=== PATIENT | male | born 1950 | race Caucasian/White ===

== ENCOUNTER 2020-12-29 23:12 | Emergency (ER) | payer OTHER ==
[~2020-12-29] VITALS: Ht 182.9 cm; Wt 86.2 kg
[2020-12-30 00:07] LABS: BASOPHILS % (AUTO) 0.5 % (0.0-2.0); EOSINOPHILS % (AUTO) 5.8 % (0.0-6.0); HEMATOCRIT 32 % (39-51); HEMOGLOBIN 10.3 g/dL (13.5-17.5); LYMPHOCYTES # (AUTO) 1.5 K/uL (0.8-4.8); LYMPHOCYTES % (AUTO) 19.6 % (20.0-44.0); MEAN CORPUSCULAR HGB CONC 33 g/dl (31.0-36.0); MEAN CORPUSCULAR VOLUME 84 fL (80-96); MONOCYTES # (AUTO) 0.7 K/uL (0.1-1.30); MONOCYTES % (AUTO) 8.9 % (2.0-12.0); NEUTROPHILS # (AUTO) 4.9 K/uL (1.8-8.9); NEUTROPHILS % (AUTO) 65.2 % (43.0-81.0); PLATELET COUNT (AUTO) 362 K/uL (150-450); RED BLOOD CELL COUNT(AUTO) 3.74 MIL/uL (4.5-6.0); WHITE BLOOD COUNT (AUTO) 7.5 K/uL (4.3-11.0)
[2020-12-30 00:28] LABS: CALCIUM, SERUM 8.2 mg/dL (8.5-10.1); CARBON DIOXIDE 27 mmol/L (21-32); CHLORIDE 110 mmol/L (98-107); GLUCOSE 130 mg/dL (74-106); SODIUM SERUM 144 mmol/L (136-145); UREA NITROGEN, BLOOD 32 mg/dL (7-18)
[2020-12-30 00:42] LABS: ALANINE AMINOTRANSFERASE 13 U/L (12-78); ALBUMIN 2.3 g/dL (3.4-5.0); ALKALINE PHOSPHATASE 101 U/L (46-116); ASPARTATE AMINOTRANSFERASE 11 U/L (15-37); BILIRUBIN,DIRECT 0.1 mg/dL (0.0-0.2); BILIRUBIN,TOTAL 0.3 mg/dL (0.2-1.0); TOTAL PROTEIN, SERUM 7.1 g/dL (6.4-8.2)
[2020-12-30] MEDS ORDERED: ZIPRASIDONE MESYLATE 20 MG/VIAL VIAL IM ONE ×2 (01:00→01:15)
--- NOTE | 2020-12-30 01:29 | NUR ---
COVID SWAB COLLECTED AND SENT TO LAB
[2020-12-30] MEDS ORDERED: ACETAMINOPHEN 325 MG TABLET PO PRN (02:30)
[2020-12-30] MEDS ORDERED: MAGNESIUM HYDROXIDE 30 ML UDC PO PRN (02:30)
[2020-12-30] MEDS ORDERED: ONDANSETRON HCL/PF 4 MG/2 ML VIAL IVP PRN (02:30)
[2020-12-30] MEDS ORDERED: IV NS 0.9% 1,000 ML IV PRN (02:30)
--- NOTE | 2020-12-30 02:36 | NUR ---
ROSARIO FROM [facility] CALLED FOR VS UPDATE
[2020-12-30] MEDS ORDERED: IV NS 0.9% 1,000 ML BAG IV ONE ×2 (03:00)
--- NOTE | 2020-12-30 05:13 | NUR ---
PT ACCEPTED AT [facility] UNDER THE CARE OF DR. HAWKINS. PT GOING TO ROOM 1000 MS. CALL [phone] FOR REPORT. PAINTER SHIPYARD TIME FOR TRANSPORT [id number]
--- NOTE | 2020-12-30 07:00 | NUR ---
GAVE REPORT TO SHERINE GOMEZ FROM [facility]
--- NOTE | 2020-12-30 08:21 | NUR ---
[facility] [place]
[2020-12-30 09:15] VITALS: BP 103/74
--- NOTE | 2020-12-30 09:16 | NUR ---
patient picked up by private ambulance going to [facility] for rehab medicine in no distress.
== END 2020-12-30 09:16 | disposition short-term general hospital (02) ==
LOC: ER 23:18
DX: I95.9 Hypotension, unspecified (principal); N17.9 Acute kidney failure, unspecified; R45.1 Restlessness and agitation; Z20.822 Contact with and (suspected) exposure to COVID-19; Z89.412 Acquired absence of left great toe; R94.31 Abnormal electrocardiogram [ECG] [EKG]
CPT/HCPCS: 36415; 71045; 80048; 80076; 83605; 83880; 84145; 84484; 85025; 85730; 87040 ×2; 87426; 93005; 96372; 99291; C9803; J3486; U0003

== ENCOUNTER 2021-01-31 10:40 | Inpatient (IN) | payer OTHER ==
[2021-01-31] VITALS (20 sets, daily range): BP systolic 64–122; BP diastolic 22–93
[~2021-01-31] VITALS: Ht 182.9 cm; Wt 79.4 kg
--- NOTE | 2021-01-31 10:47 | NUR ---
DR PUENTE AT BEDSIDE FOR EVAL
[2021-01-31] MEDS ORDERED: IV NS 0.9% 500 ML BAG IV ONE ×2 (11:00→14:00)
[2021-01-31 11:08] LABS: BASOPHILS % (AUTO) 0.6 % (0.0-2.0); EOSINOPHILS % (AUTO) 2.5 % (0.0-6.0); HEMATOCRIT 28 % (39-51); HEMOGLOBIN 9.2 g/dL (13.5-17.5); LYMPHOCYTES # (AUTO) 0.9 K/uL (0.8-4.8); LYMPHOCYTES % (AUTO) 15.1 % (20.0-44.0); MEAN CORPUSCULAR HGB CONC 33 g/dl (31.0-36.0); MEAN CORPUSCULAR VOLUME 83 fL (80-96); MONOCYTES # (AUTO) 0.3 K/uL (0.1-1.30); MONOCYTES % (AUTO) 5.7 % (2.0-12.0); NEUTROPHILS # (AUTO) 4.3 K/uL (1.8-8.9); NEUTROPHILS % (AUTO) 76.1 % (43.0-81.0); PLATELET COUNT (AUTO) 163 K/uL (150-450); RED BLOOD CELL COUNT(AUTO) 3.34 MIL/uL (4.5-6.0); WHITE BLOOD COUNT (AUTO) 5.7 K/uL (4.3-11.0)
--- NOTE | 2021-01-31 11:12 | NUR ---
RATE SETTER AT BEDSIDE
--- NOTE | 2021-01-31 11:20 | NUR ---
URINE SAMPLE COLLECTED VIA STRAIGHT CATHETER, SENT TO LAB
[2021-01-31 11:24] LABS: CALCIUM, SERUM 8.1 mg/dL (8.5-10.1); CARBON DIOXIDE 25 mmol/L (21-32); CHLORIDE 109 mmol/L (98-107); CREATININE 2.8 mg/dL (0.6-1.3); GLUCOSE 113 mg/dL (74-106); POTASSIUM 4.6 mmol/L (3.5-5.1); SODIUM SERUM 143 mmol/L (136-145); UREA NITROGEN, BLOOD 71 mg/dL (7-18)
[2021-01-31 11:28] LABS: ALANINE AMINOTRANSFERASE 20 U/L (12-78); ALBUMIN 1.8 g/dL (3.4-5.0); ALKALINE PHOSPHATASE 108 U/L (46-116); ASPARTATE AMINOTRANSFERASE 19 U/L (15-37); BILIRUBIN,DIRECT 0.1 mg/dL (0.0-0.2); BILIRUBIN,TOTAL 0.2 mg/dL (0.2-1.0); TOTAL PROTEIN, SERUM 6.3 g/dL (6.4-8.2)
[2021-01-31 11:49] LABS: BILIRUBIN,URINE Negative (NEGATIVE); COLOR,URINE YELLOW (YELLOW); LEUKOCYTE ESTERASE ,URINE Large (NEGATIVE); NITRITE, URINE Negative (NEGATIVE); PROTEIN,URINE 30 mg/dl (NEGATIVE); UGLUCOSE Negative (NEGATIVE); UROBILINOGEN,URINE 0.2 EU/dL (0.2)
[2021-01-31 11:54] LABS: BACTERIA,URINE 2+ /HPF (None Seen); SQUAMOUS EPITHELIAL CELL,UR Few /HPF (None Seen); WBC,URINE 21-50 /HPF (0-3)
--- NOTE | 2021-01-31 12:31 | NUR ---
COVID RAPID AND PCR TEST WAS COLLECTED. SENT TO THE LAB
[2021-01-31] MEDS ORDERED: CEFTRIAXONE 1GM BAG (ER ONLY) 50 ML IV ONE (12:45)
[2021-01-31] MEDS ORDERED: CEFTRIAXONE 1GM BAG (ER ONLY) 1 GM/50 ML PIGGYBACK IV ONE (13:00)
[2021-01-31] MEDS ORDERED: IV NS 0.9% 1,000 ML BAG IV ONE (13:00)
[2021-01-31] MEDS ORDERED: ACET325T53 PO (13:36)
[2021-01-31] MEDS ORDERED: RIVA10TA PO (13:36)
[2021-01-31] MEDS ORDERED: SENN-175 PO (13:36)
[2021-01-31] MEDS ORDERED: PANT40TA49 PO (13:36)
[2021-01-31] MEDS ORDERED: METO50TA16 PO (13:36)
[2021-01-31] MEDS ORDERED: ASPI-1169 PO (13:36)
[2021-01-31] MEDS ORDERED: PERIACTIN PO (13:36)
[2021-01-31] MEDS ORDERED: MULT-447 PO (13:36)
[2021-01-31] MEDS ORDERED: ZINC220C6 PO (13:36)
[2021-01-31] MEDS ORDERED: ASCO500T20 PO (13:36)
[2021-01-31] MEDS ORDERED: LISI40TA13 PO (13:36)
[2021-01-31] MEDS ORDERED: QUET50TA PO (13:36)
[2021-01-31] MEDS ORDERED: ATOR40TA PO (13:36)
[2021-01-31] MEDS ORDERED: DIVA125C5 PO (13:36)
[2021-01-31] MEDS ORDERED: BISA10SU11 RC (13:36)
[2021-01-31] MEDS ORDERED: NA P133E RC (13:36)
[2021-01-31] MEDS ORDERED: FINA5TAB11 PO (13:36)
--- NOTE | 2021-01-31 13:58 | NUR ---
PAGED DR. ANDRADE
--- NOTE | 2021-01-31 14:10 | NUR ---
MADE AWARE OF BP. ORDERED TO PLACE PICC LINE FOR PRESSORS. MADE ELEUTERIO ESPINOSA AWARE.
--- NOTE | 2021-01-31 14:35 | NUR ---
PICC LINE NURSE AT BEDSIDE
[2021-01-31] MEDS: NOREPINEPHRINE 8 MG in IV NS 0.9% 242 ML IV PRN ×4 (14:40→21:12)
--- NOTE | 2021-01-31 14:59 | NUR ---
MD MONTERO SPEAKING WITH MD ANDRADE
[2021-01-31] MEDS ORDERED: PIPERACILLIN /TAZOBACTAM 3.375 G in IV D5W 50 ML IV ONE (15:00)
--- NOTE | 2021-01-31 15:11 | NUR ---
MARKET NEWS REPORTER AT BEDSIDE
--- NOTE | 2021-01-31 15:46 | NUR ---
REPORT GIVEN TO FRED GOMEZ OF ICU
[2021-01-31] MEDS ORDERED: VANCOMYCIN 1 GM in IV D5W 250ml IV ONE (16:00)
[2021-01-31] MEDS ORDERED: ACETAMINOPHEN 325 MG TABLET PO PRN (16:00)
[2021-01-31] MEDS ORDERED: BISACODYL SUPP (10 MG) 10 MG/SUPP.RECT SUPP.RECT RC PRN (16:00)
[2021-01-31] MEDS ORDERED: NA PHOS,M-B/NA PHOS,DI-BA 1 EA ENEMA RC PRN (16:00)
[2021-01-31] MEDS ORDERED: DEXTROSE 50%-WATER 50 ML DISP.SYRIN IV PRN (16:00)
[2021-01-31] MEDS ORDERED: PIPERACILLIN /TAZOBACTAM 2.25 G in IV D5W 50 ML IV SCH (16:00)
[2021-01-31] MEDS: PIPERACILLIN /TAZOBACTAM 2.25 G in IV D5W 50 ML IV SCH (16:30)
--- NOTE | 2021-01-31 16:30 | NUR ---
RN/ICU-ADMITTED THIS 70 Y/O MALE FROM ER ,ACCOMPANIED BY ER STAFF PER ACLS PROTOCOL.DX:SEPSIS,PNEUMONIA,UTI.ROUTINE ICU ADMISSION CARE INITIATED.PT. IS AWAKE, CALM, ORIENTED TO SELF AND PLACE, SPEECH SLIGHTLY SLURRED AT THIS TIME.NO MOTOR DEFICIT NOTED. ON ROOM AIR, STA.-95%. EKG ST W/ HR-132/MIN. BP-84/71, ON LEVOPHED DRIP AT 0.3 MCG/KG/MIN. WILL TITRATE TO KEEP SBP>90 PER PROTOCOL.
[2021-01-31] MEDS: RIVAROXABAN 10 MG TABLET PO SCH (17:22)
[2021-01-31] MEDS: BLOOD SUGAR DIAGNOSTIC 1 EACH STRIP VI SCH ×2 (17:39→21:29)
[2021-01-31] MEDS: INSULIN REGULAR, HUMAN 100 UNIT/ML 3 ML VIAL SQ PRN (17:42)
--- NOTE | 2021-01-31 17:50 | NUR ---
RN/ICU-PT. EXTREMELY AGITATED, STARTED PULLING ON MEDICAL, SLIDING DOWN, RIGHT LEG ON TOP OF RAIL IN SPITE OF VERBAL REMINDER, RICHAR. SOFT WRIST RESTRAINTS APPLIED PER PROTOCOL. WILL CONTINUE TO MONITOR PER PROTOCOL.
--- NOTE | 2021-01-31 18:05 | NUR ---
RN/ICU-PT. ABLE TO PULL PADS AND REMOVED PULSE OXIMETER PROBE, SHAKING THE BED VIGOROUSLY, RICHAR. MITTENS ADDED TO THE SOFT WRIST RESTRAINTS PER PROTOCOL.
--- NOTE | 2021-01-31 18:50 | NUR ---
RN/ICU- SPOKE TO SISTER DONELL BY PHONE REGARDING PT. STATUS AND POC. VERBALIZED UNDERSTANDING. WILL VISIT PT., ARRIVING NNAMDI. AFTERNOON AT 1700. DONELL'S PHONE NO. [phone].
--- NOTE | 2021-01-31 19:00 | NUR ---
RN/ICU-PT. REMAINS OFF AND ON AGITATED, YELLING , VERY CONFUSED,REMAINS ON LEVOPHED DRIP PER PROTOCOL. WILL CONTINUE TO TITRATE TOLERATED TO KEEP SBP>90. ON DROPLET AND CONTACT ISOLATION , AWAITING PCR RESULT,PRECAUTIONS IN EFFECT.
--- NOTE | 2021-01-31 19:30 | NUR ---
RN NOTE RECEIVED PT CONFUSED AND VERY AGITATED. TRIED TO CALM PATIENT, PT BEING UNCOOPERATIVE. PT ORIENTED TO SELF ONLY. REORIENTED TO TIME PLACE AND SITUATION. PT ON LEVOPHED AT 0.1MCG/KG/MIN., MARLYS PICC PATENT AND INTACT. PT WITH BILATERAL SOFT WRIST RESTRAINTS AND MITTENS, TRYING TO GET OUT FROM BED. PT ON ROOM AIR SATING 96%. ALL SAFETY MEASURES IMPLEMENTED PER PROTOCOL. WILL CONTINUE TO MONITOR.
[2021-01-31] MEDS: ATORVASTATIN 40 MG TABLET PO SCH (21:17)
[2021-01-31] MEDS: DIVALPROEX SODIUM 125 MG CAP.SPRINK PO SCH (21:17)
[2021-01-31] MEDS: *INSULIN REGULAR(HUMULIN R)HUM 100 UNIT/ML VIAL SQ PRN (21:31)
[2021-01-31] MEDS ORDERED: ADENOSINE 6 MG/2 ML VIAL IVP STA (22:48)
--- NOTE | 2021-01-31 22:50 | NUR ---
RN NOTE PT WENT TO SVT. HR 197-220. PT AWAKE. DENIES ANY CHEST PAIN. NOTIFIED DR ANDRADE. WITH NEW ORDERS TO GIVE ADENOSINE 6MG IVP X 1, NS 1L BOLUS AND CHANGED LEVOPHED TO AMY. INPUT ORDERS AND CARRIED OUT. CHARGE NURSE WITH THE PT. MADE AWARE WITH THE NEW ORDERS.
[2021-01-31] MEDS ORDERED: ADENOSINE 6 MG/2 ML VIAL ONE (22:54)
[2021-01-31] MEDS ORDERED: PHENYLEPHRINE 10 MG/ML VIAL ONE (22:58)
[2021-01-31] MEDS ORDERED: IV NS 0.9% 1,000 ML IV ONE (23:00)
[2021-01-31] MEDS: PHENYLEPHRINE 50 MG in IV NS 0.9% 245 ML IV PRN (23:05)
--- NOTE | 2021-01-31 23:45 | NUR ---
RN NOTE PT CONVERTED BACK TO SINUS TACH WITH HR OF 108. EKG RESULTS RELAYED TO DR ANDRADE.
--- NOTE | 2021-01-31 23:50 | NUR ---
RN NOTE PT ON SINUS TACH NOW WITH HR 108, DR ANDRADE ORDERED TO STILL GIVE THE ADENOSINE ORDERED. CHARGE NURSE MADE AWARE. CHARGE NURSE ADMINISTERED IV ADENOSINE. WILL CONTINUE TO MONITOR.
[2021-02-01] VITALS (81 sets, daily range): BP systolic 66–178; BP diastolic 14–103
[2021-02-01] MEDS: PIPERACILLIN /TAZOBACTAM 2.25 G in IV D5W 50 ML IV SCH ×3 (00:16→17:17)
[2021-02-01 04:27] LABS: BASOPHILS % (AUTO) 0.6 % (0.0-2.0); EOSINOPHILS % (AUTO) 0.2 % (0.0-6.0); HEMATOCRIT 27 % (39-51); LYMPHOCYTES # (AUTO) 0.8 K/uL (0.8-4.8); LYMPHOCYTES % (AUTO) 10.4 % (20.0-44.0); MEAN CORPUSCULAR HGB CONC 33 g/dl (31.0-36.0); MEAN CORPUSCULAR VOLUME 84 fL (80-96); MONOCYTES # (AUTO) 0.5 K/uL (0.1-1.30); MONOCYTES % (AUTO) 6.8 % (2.0-12.0); NEUTROPHILS # (AUTO) 6.2 K/uL (1.8-8.9); PLATELET COUNT (AUTO) 176 K/uL (150-450); RED BLOOD CELL COUNT(AUTO) 3.22 MIL/uL (4.5-6.0); WHITE BLOOD COUNT (AUTO) 7.6 K/uL (4.3-11.0)
[2021-02-01 04:55] LABS: ALANINE AMINOTRANSFERASE 17 U/L (12-78); ALBUMIN 1.8 g/dL (3.4-5.0); ALKALINE PHOSPHATASE 112 U/L (46-116); ASPARTATE AMINOTRANSFERASE 18 U/L (15-37); BILIRUBIN,TOTAL 0.3 mg/dL (0.2-1.0); CALCIUM, SERUM 7.3 mg/dL (8.5-10.1); CARBON DIOXIDE 23 mmol/L (21-32); CHLORIDE 113 mmol/L (98-107); CREATININE 2.4 mg/dL (0.6-1.3); GLUCOSE 79 mg/dL (74-106); POTASSIUM 4.3 mmol/L (3.5-5.1); SODIUM SERUM 146 mmol/L (136-145); UREA NITROGEN, BLOOD 61 mg/dL (7-18)
--- NOTE | 2021-02-01 07:26 | NUR ---
RN NOTE PT AWAKE, TRYING TO GET OUT FROM THE BED, REMOVING MITTENS. REMAIN ON RESTRAINTS BUT PT HAS WAY OF REMOVING THE MITTENS. VERY UNCOOPERATIVE. NO SIGNS OF DISTRESS NOTED. TOLERATING ROOM AIR. CHANGED WOUND DRESSING. TITRATED NEOSYNEPHRINE PER PROTOCOL, CURRENTLY ON 1.1 MCG/KG/MIN. INFUSING WELL. ON FREQUENT VISUAL CHECKS. ALL SAFETY MEASURES MAINTAINED. Addendum: 02/01/21 at 9644 by JULIO RUIZ RN ENDORSED TO NEXT SHIFT NURSE FOR ZEESHAN.
[2021-02-01] MEDS: BLOOD SUGAR DIAGNOSTIC 1 EACH STRIP VI SCH ×4 (07:49→23:12)
[2021-02-01] MEDS: PANTOPRAZOLE 40 MG TABLET.DR PO SCH (07:49)
--- NOTE | 2021-02-01 08:00 | NUR ---
RN NOTES RECEIVED PATIENT IN THE BED ROOM AIR, YELLING, CONFUSED, TRYING TO GET OUT OF BED. PATIENT ON BILATERAL SOFT RESTRAIN, AND MITTENS.MONITORING BOLATERAL WRIST CIRCULATION Q 2 HR. VERY UNCOOPERATIVE. NO SIGNS OF RESPIRATORY DISTRESS, VS STABLE. PATIENT ON NEOSYNEPHRINE 1.1 MCG/KG/HR, AND TKO RIGHT PICC LINE INTACT. INFUSING WELL. . ASSIST EATING BREAKFAST TOLERATED WILL WITH TOTAL ASSIST. PATIENT INCONTINENT. DUE MEDICATION ADMINISTERED . BED ALARM ON, SIDE RAILS UP. ALL SAFETY MEASURES MAINTAINED. WILL FOLLOW UP.
[2021-02-01 08:17] LABS: BAND % (MANUAL) 1 % (0.0-5.0); LYMPHOCYTES % (MANUAL) 11 % (16-48); MONOCYTES % (MANUAL) 5 % (0-11.0); NEUTROPHILS % (MANUAL) 83 (42-76)
[2021-02-01] MEDS: DIVALPROEX SODIUM 125 MG CAP.SPRINK PO SCH ×2 (08:44→20:49)
[2021-02-01] MEDS: MULTIVIT W/MINERALS 1 TAB TABLET PO SCH (08:57)
[2021-02-01] MEDS: FINASTERIDE (5 MG) 5 MG TABLET PO SCH (08:57)
[2021-02-01] MEDS: ZINC SULFATE 220 MG CAPSULE PO SCH (08:58)
[2021-02-01] MEDS: ASCORBIC ACID 500 MG TABLET PO SCH (08:58)
[2021-02-01] MEDS: ASPIRIN 81 MG TAB.CHEW PO SCH (08:58)
[2021-02-01] MEDS: RIVAROXABAN 10 MG TABLET PO SCH ×2 (09:00→17:19)
[2021-02-01] MEDS: PHENYLEPHRINE 50 MG in IV NS 0.9% 245 ML IV PRN ×2 (09:15→19:51)
--- NOTE | 2021-02-01 12:00 | NUR ---
RN NOTES BS-117 MG/DL, ASSIST LUNCH, TOLERATED 50%. PATIENT REFUSED PAIN, ASPIRATION PRECAUTION USING NECTAR THICKENER. TITRATED NEO0.9 MCG/KG/HR PER PROTOCOL. SAFETY MEASURE MONITORING ALL THE TIME . PATIENT STILL YELLING, CONFUSED TRYING TO GET OUT OF BED. US OF KIDNEY DONE.
[2021-02-01] MEDS: INSULIN REGULAR, HUMAN 100 UNIT/ML 3 ML VIAL SQ PRN (17:25)
[2021-02-01] MEDS: VANCOMYCIN 1 GM in IV D5W 250ml IV SCH (18:00)
--- NOTE | 2021-02-01 18:31 | NUR ---
rn notes bs-178mg/dl coverage given assist dinner tolerated 50%, vs stable, patient pm acre done, due medication administered, infusing amaury 0.5 mcg/kg/hr, vancomycin 250mg/hr intact on right ua picc line. patient has bm x2, redness on rectal area, applied z-guard, patient turn and reposition self. no acute respiratory distress,. call light within to reach. rechecked bilateral soft restrain, and mittens circulation q 2hr. endorsed oncoming nurse follow plan of care.
--- NOTE | 2021-02-01 19:26 | NUR ---
research agricultural engineer. initial assessment. received the pt rest on the bed. sleeping. at this time. pt is room air. sat 96%. no acute distress noted. telemetry monitor showing nsr. iv rt upper arm picc line. amaury 0.5mcg/kg/min, . afebrile. tavo soft wrist restraint checked and released. no injury or redness noted. will continue to monitor vitals.
[2021-02-01] MEDS ORDERED: IV NS 0.9% 250 ML IV PRN (20:00)
[2021-02-01] MEDS: ATORVASTATIN 40 MG TABLET PO SCH (21:06)
[2021-02-01] MEDS ORDERED: OLANZAPINE 10 MG VIAL IM SCH (23:00)
[2021-02-02] VITALS (29 sets, daily range): BP systolic 88–130; BP diastolic 41–82
--- NOTE | 2021-02-02 | NUR ---
SENIOR SALES ENGINEER. PT IS AGITATED, NOTIFIED MD ANDRADE. ZYPREXA I/M STARTED.
[2021-02-02] MEDS: PIPERACILLIN /TAZOBACTAM 2.25 G in IV D5W 50 ML IV SCH ×4 (00:05→23:32)
--- NOTE | 2021-02-02 03:04 | NUR ---
GROUP ACTIVITIES AIDE. AM CARE GIVEN. REMAINING SAME PT IS ON ROOM AIR. SAT 98%. NO ACUTE DISTRESS NOTED. [employer] BPM DEVELOPER SHOWING NSR. IV RT UPPER ARM PICC LINE. TKO RUNNING. HOB ELEVATED, WILL CONTINUE TO MONITOR VITALS.
[2021-02-02 04:56] LABS: HEMOGLOBIN 8.3 g/dL (13.5-17.5); LYMPHOCYTES # (AUTO) 1.2 K/uL (0.8-4.8); MONOCYTES # (AUTO) 0.4 K/uL (0.1-1.30); WHITE BLOOD COUNT (AUTO) 5.3 K/uL (4.3-11.0)
[2021-02-02 05:01] LABS: BASOPHILS % (AUTO) 0.9 % (0.0-2.0); EOSINOPHILS % (AUTO) 5.3 % (0.0-6.0); HEMATOCRIT 25 % (39-51); MEAN CORPUSCULAR HGB CONC 34 g/dl (31.0-36.0); MEAN CORPUSCULAR VOLUME 83 fL (80-96); MONOCYTES % (AUTO) 8.1 % (2.0-12.0); NEUTROPHILS # (AUTO) 3.4 K/uL (1.8-8.9); NEUTROPHILS % (AUTO) 63.7 % (43.0-81.0); PLATELET COUNT (AUTO) 155 K/uL (150-450); RED BLOOD CELL COUNT(AUTO) 2.98 MIL/uL (4.5-6.0)
[2021-02-02 05:06] LABS: ALANINE AMINOTRANSFERASE 18 U/L (12-78); ALBUMIN 1.7 g/dL (3.4-5.0); ALKALINE PHOSPHATASE 111 U/L (46-116); ASPARTATE AMINOTRANSFERASE 23 U/L (15-37); BILIRUBIN,TOTAL 0.3 mg/dL (0.2-1.0); CALCIUM, SERUM 7.5 mg/dL (8.5-10.1); CARBON DIOXIDE 26 mmol/L (21-32); CHLORIDE 115 mmol/L (98-107); CREATININE 1.7 mg/dL (0.6-1.3); GLUCOSE 107 mg/dL (74-106); IRON, SERUM 58 ug/dl (50-175); POTASSIUM 4.1 mmol/L (3.5-5.1); SODIUM SERUM 149 mmol/L (136-145); TOTAL IRON BINDING CAPACITY 106 ug/dl (250-450); TOTAL PROTEIN, SERUM 5.9 g/dL (6.4-8.2); UREA NITROGEN, BLOOD 42 mg/dL (7-18)
--- NOTE | 2021-02-02 08:00 | NUR ---
RN NOTES SEEN PATIENT IN THE BED ROOM AIR, CONFUSED, PATIENT ON BILATERAL SOFT RESTRAIN, AND MITTENS.MONITORING BILATERAL WRIST CIRCULATION Q 2 HR. NO SIGNS OF RESPIRATORY DISTRESS, VS STABLE. PATIENT ON TKO RIGHT UA PICC LINE INTACT. INFUSING WELL. . ASSIST EATING BREAKFAST TOLERATED WILL WITH TOTAL ASSIST. PATIENT INCONTINENT. DUE MEDICATION ADMINISTERED . BED ALARM ON, SIDE RAILS UP. ALL SAFETY MEASURES MAINTAINED. WILL FOLLOW UP.
[2021-02-02] MEDS: PANTOPRAZOLE 40 MG TABLET.DR PO SCH (09:32)
[2021-02-02] MEDS: ZINC SULFATE 220 MG CAPSULE PO SCH (09:32)
[2021-02-02] MEDS: ASCORBIC ACID 500 MG TABLET PO SCH (09:32)
[2021-02-02] MEDS: FINASTERIDE (5 MG) 5 MG TABLET PO SCH (09:32)
[2021-02-02] MEDS: BLOOD SUGAR DIAGNOSTIC 1 EACH STRIP VI SCH ×4 (09:32→21:42)
[2021-02-02] MEDS: MULTIVIT W/MINERALS 1 TAB TABLET PO SCH (09:32)
[2021-02-02] MEDS: ASPIRIN 81 MG TAB.CHEW PO SCH (09:32)
[2021-02-02] MEDS: DIVALPROEX SODIUM 125 MG CAP.SPRINK PO SCH ×2 (09:32→20:14)
[2021-02-02] MEDS: RIVAROXABAN 10 MG TABLET PO SCH ×2 (09:33→17:40)
[2021-02-02] MEDS: OLANZAPINE 10 MG VIAL IM SCH ×2 (09:37→20:15)
[2021-02-02] MEDS: INSULIN REGULAR, HUMAN 100 UNIT/ML 3 ML VIAL SQ PRN ×3 (10:09→18:02)
--- NOTE | 2021-02-02 10:59 | NUR ---
RN NOTES TRANSFERRED PATIENT TO THE MED/SURGE UNIT ROOM 107 AT THIS TIME AFTER WITH STABLE CONDITION. VSS, REFUSED PAIN. PATIENT SEEN HOSPITALIST Dr ANDRADE. REPORT GIVEN RN FOLLOW PLAN OF CARE.
--- NOTE | 2021-02-02 11:00 | NUR ---
MS RN NOTES RECEIVED PT FROM ICU. AWAKE, A/O X1. STABLE ON ROOM AIR. NO SOB OR ANY S/S OF DISTRESS. DENIES PAIN. IV ACCESS ON LFA # 18 AND MARLYS PICCLINE BOTH INTACT, PATENT AND FLUSHED. SAFETY MEASURES IN PLACE. CALL LIGHT WITHIN REACH. BED LOCKED AND IN LOWEST POSITION WITH SIDE RAILS UP X3. BED ALARM ON. WILL CONTINUE TO MONITOR.
[2021-02-02] MEDS: FLUCONAZOLE (100 MG) 100 MG TABLET PO SCH (11:40)
[2021-02-02] MEDS: VANCOMYCIN 1 GM in IV D5W 250ml IV SCH (18:53)
--- NOTE | 2021-02-02 19:00 | NUR ---
RN NOTES: RECEIVED AWAKE ON BED, A/O TO SELF ONLY, VERY CONFUSES, ,PER ENORSEMENT PATIENT WAS FROM ICU NOW ON KEMAR MS, ON BILATERAL SOFT RESTRAINT, MONITOR SKIN AND WRIST AREA FOR CIRCULATION, ON ROOM AIR-98%, ORIENTED TO UNIT AND STAFF, BED LOW AND LOCKED, KEPT CALL LIGHT WITHIN EASY REACH, FALL, ASPIRATION AND SAFETY PRECAUTION OBSERVED, MARLYS MIDLINE PATENT, WITH VANCO INFUSION ONGOING AT 250 ML/HR FOR VAN TROUGH TOMORROW AT 1800.
--- NOTE | 2021-02-02 19:30 | NUR ---
RN CLOSING NOTES NO SIGNIFICANT CHANGES THROUGHOUT THE SHIFT. ALL DUE MEDS GIVEN. NEEDS ATTENDED. KEPT CLEAN AND COMFORTABLE. SAFETY MEASURES IMPLEMENTED. ENDORSED TO NIGHT RN FOR ZEESHAN.
[2021-02-02] MEDS: ATORVASTATIN 40 MG TABLET PO SCH (21:01)
[2021-02-02] MEDS: *INSULIN REGULAR(HUMULIN R)HUM 100 UNIT/ML VIAL SQ PRN (21:46)
--- NOTE | 2021-02-02 21:47 | NUR ---
RN NOTES: BLOOD SUGAR CHECKED:187,INSULIN GIVEN PER SCALE, CONTINUE TO MONITOR FOR SIGN OF HYPER/HYPOGLYCEMIA.SNACKS GIVEN.
--- NOTE | 2021-02-02 23:32 | NUR ---
RN NOTES: --CALLS AND NEEDS ATTENDED, DUE IV MEDICATION GIVEN, GIVEN SOME SNACK, BRIEF CHANGE HE PEE,KEPT COMFORTABLE IN BED.
[2021-02-03] VITALS: BP 116/68
--- NOTE | 2021-02-03 00:14 | NUR ---
RN NOTES: ABLE TO REST AND SLEEP, KEPT CALL LIGHT WITHIN EASY EACH, ON CLOSE VISUAL CHECK, RESTRAINTS CHECK AT FREQUENT INTERVALS, NO REDNESS ON THE RIGHT AND LEFT WRIST, ABLE TO INSERT FINGER ON THE SOFT RESTRAINTS.
--- NOTE | 2021-02-03 02:50 | NUR ---
RN NOTES: HE WAS AWAKE AND HE IS TRYING TO PULL OUT HIS IV AND HIS RESTRAINT, SHOUTING TO THE STAFF, ASKING TO REMOVE HIS RESTRAINTS.TRYING TO DIVERTHIS ATTENTION.
[2021-02-03 04:00] VITALS: BP 94/67
[2021-02-03 07:18] LABS: CALCIUM, SERUM 8.1 mg/dL (8.5-10.1); CARBON DIOXIDE 23 mmol/L (21-32); CHLORIDE 118 mmol/L (98-107); CREATININE 1.4 mg/dL (0.6-1.3); GLUCOSE 90 mg/dL (74-106); POTASSIUM 3.8 mmol/L (3.5-5.1); SODIUM SERUM 151 mmol/L (136-145); UREA NITROGEN, BLOOD 32 mg/dL (7-18)
--- NOTE | 2021-02-03 07:22 | NUR ---
RN NOTES: ABLE TO SLEEP AND REST, KEPT ON CLOSE WATCH, ENDORSED FOR CONTINUITY OF CARE, CONTINUE ON SOFT RESTRAINT.
--- NOTE | 2021-02-03 07:33 | NUR ---
RN OPENING NOTES Patient seen comfortably lying in bed, no SOB, no apparent distress noted, breathing even and unlabored, denies any pain or discomfort at this time, no grimacing. Call light left within reach, safety precautions in place, brakes locked, side rails up X 2, will monitor closely for any changes.
[2021-02-03 08:00] VITALS: BP 124/75
[2021-02-03] MEDS: BLOOD SUGAR DIAGNOSTIC 1 EACH STRIP VI SCH ×3 (08:06→17:17)
[2021-02-03] MEDS ORDERED: FLUC100T8 PO (08:17)
[2021-02-03] MEDS ORDERED: LEVO500T90 PO (08:17)
[2021-02-03] MEDS ORDERED: MIDO2.5T PO (08:18)
[2021-02-03] MEDS: DIVALPROEX SODIUM 125 MG CAP.SPRINK PO SCH (08:58)
[2021-02-03] MEDS: ZINC SULFATE 220 MG CAPSULE PO SCH (08:58)
[2021-02-03] MEDS: FLUCONAZOLE (100 MG) 100 MG TABLET PO SCH (08:58)
[2021-02-03] MEDS: FINASTERIDE (5 MG) 5 MG TABLET PO SCH (08:58)
[2021-02-03] MEDS: ASCORBIC ACID 500 MG TABLET PO SCH (08:58)
[2021-02-03] MEDS: MULTIVIT W/MINERALS 1 TAB TABLET PO SCH (08:58)
[2021-02-03] MEDS: PANTOPRAZOLE 40 MG TABLET.DR PO SCH (08:58)
[2021-02-03] MEDS: ASPIRIN 81 MG TAB.CHEW PO SCH (08:58)
[2021-02-03] MEDS: PIPERACILLIN /TAZOBACTAM 2.25 G in IV D5W 50 ML IV SCH ×2 (08:59→16:31)
[2021-02-03] MEDS: MIDODRINE HCL (5MG) 5 MG TABLET PO SCH ×2 (09:00→17:00)
[2021-02-03] MEDS: OLANZAPINE 10 MG VIAL IM SCH (09:16)
[2021-02-03] MEDS: RIVAROXABAN 10 MG TABLET PO SCH ×2 (09:18→17:15)
[2021-02-03 12:00] VITALS: BP 112/66
[2021-02-03] MEDS: INSULIN REGULAR, HUMAN 100 UNIT/ML 3 ML VIAL SQ PRN ×2 (12:06→17:17)
[2021-02-03 16:00] VITALS: BP 118/75
[2021-02-03 17:00] VITALS: BP 118/75
--- NOTE | 2021-02-03 18:35 | NUR ---
Patient to be discharged [facility] today, gave report to Colby GOMEZ, patient is going to room 55C. No apparent distress noted, no shortness of breath, respirations even and unlabored, denies any pain or discomfort, no grimacing. Patient made aware of the situation, patient unable to sign, 2 RNs signed all discharge paper works, all belongings taken, inventory list signed by 2RNs. Health teaching provided. Skin assessment done prior to discharge, skin intact, warm to touch, no pallor or cyanosis noted. Photos taken and filed in chart, sacral part unable to take photo, patient refused thrice, explained risks and benefits, still refused, respected patient's wishes. Midline on the right upper arm and peripheral line on left forearm removed prior to discharge, complete and intact, no bleeding noted, site covered with dry dressing. Name wristband removed prior to discharge, surgical mask provided for patient to use. Patient left unit at [id number] , stable condition, exit care documents handed to accounting machine mechanic from [facility].
== END 2021-02-03 18:20 | DRG 871 ==
LOC: ER 10:45 → ICU 15:24 → TELE1 02-02 11:07 → MEDSG1 02-02 11:30
PROVIDERS: ADMIT Internal Medicine; ATTEND Internal Medicine
PROC: 02HV33Z Insertion of Infusion Device into Superior Vena Cava, Percutaneous Approach (ICD-10-PCS; principal; 2021-01-31)
PROC: B548ZZA Ultrasonography of Superior Vena Cava, Guidance (ICD-10-PCS; 2021-01-31)
DX: A41.9 Sepsis, unspecified organism (principal); R65.21 Severe sepsis with septic shock; J69.0 Pneumonitis due to inhalation of food and vomit; N17.9 Acute kidney failure, unspecified; B37.49 Other urogenital candidiasis; I47.1 Supraventricular tachycardia; Z20.822 Contact with and (suspected) exposure to COVID-19; I12.9 Hypertensive chronic kidney disease with stage 1 through stage 4 chronic kidney disease, or unspecified chronic kidney disease; N18.9 Chronic kidney disease, unspecified; Z86.73 Personal history of transient ischemic attack (TIA), and cerebral infarction without residual deficits; E11.22 Type 2 diabetes mellitus with diabetic chronic kidney disease; Z79.82 Long term (current) use of aspirin; Z79.01 Long term (current) use of anticoagulants; D63.8 Anemia in other chronic diseases classified elsewhere; Z79.899 Other long term (current) drug therapy; N40.0 Benign prostatic hyperplasia without lower urinary tract symptoms; F03.90 Unspecified dementia, unspecified severity, without behavioral disturbance, psychotic disturbance, mood disturbance, and anxiety; Y95 Nosocomial condition; I95.89 Other hypotension
CPT/HCPCS: 36415; 71045-TC; 76770-TC; 80048-TC; 80053-TC; 80076-TC; 80202-TC; 81001; 82533; 82962-TC; 83540-TC; 83605-TC; 84484-TC; 85025-TC; 85730-TC; 87040-TC; 87081-TC; 87086-TC; A6253; A6403; C9803; G0378; J0153; J0696; J1815; J2370; J2543; J3370; J3490; J7030; J7040; J7050; J7060; U0003